=== PATIENT | female | born 1975 | race African-American/Black ===

== ENCOUNTER 2019-06-11 12:47 | Emergency (ER) | payer OTHER, SELFPAY ==
[2019-06-11 12:58] VITALS: BP 138/88; PULSE 74; RESP 18; TEMP 37; O2SAT 99
--- NOTE | 2019-06-11 13:06 | ED.GENADULT ---
HPI - General Adult General Chief complaint: Upper Respiratory Infection Stated complaint: Sore Throat Related Data Home Medications Medication Instructions Recorded Confirmed aspirin 81 mg PO DAILY 06/11/19 06/11/19 sertraline [Zoloft] 25 mg PO DAILY 06/11/19 06/11/19 Allergies Allergy/AdvReac Type Severity Reaction Status Date / Time codeine Allergy Intermediate Swelling Verified 12/28/16 19:29 tetanus and diphtheria Allergy Intermediate Swelling Verified 12/28/16 19:29 toxoids ibuprofen Allergy Mild Nausea Verified 01/10/18 09:06 Latex, Natural Rubber Allergy Unknown Other Verified 12/28/16 19:29 lisinopril Allergy Unknown Verified 06/11/19 13:06 seafood Allergy Intermediate Swelling Uncoded 12/28/16 19:29 Review of Systems Review of Systems: Narrative: CONSTITUTIONAL: Denies fever, chills, or sweats. EYES: Denies visual changes, redness, or discharge. ENT: Denies rhinorrhea, congestion, sore throat, or otalgia. CARDIOVASCULAR:Denies chest pain, palpitations, or edema. RESPIRATORY: Denies cough or dyspnea. GASTROINTESTINAL: Denies abdominal pain, nausea, vomiting, or diarrhea. GENITOURINARY: Denies dysuria or hematuria. SKIN:[Denies rash or itching. MUSCULOSKELETAL:Denies back pain, joint pain, or myalgia. NEUROLOGIC: Denies headache, numbness, or weakness. PSYCHIATRIC:Denies anxiety or depression PMFSH Past Medical History Medical History (Updated 06/11/19 @ 13:33 by Hank Webb NP) Anxiety and depression Complex regional pain syndrome Diabetes Endometriosis GERD (gastroesophageal reflux disease) Hypertension Surgical History Surgical History (Updated 03/21/19 @ 12:37 by Nely Briggs NP) H/O LEEP History of weight loss surgery S/P endometrial ablation Social History Social History (Updated 03/21/19 @ 12:37 by Nely Briggs NP) Smoking status: Never smoker Gender identity (if verbalized by the patient): Female Comments At time as signature, I have reviewed and agree with nursing past medical, social, surgical and family history. Please see nursing chart for further information. There is no relevant family history pertinent to the presenting complaint. Exam Narrative: Exam Narrative: GENERAL:Well-appearing, well-nourished, and in no acute distress. HEAD:Normocephalic, atraumatic. EYES: PERRLA and EOMI. ENT: Nares clear, no rhinorrhea or epistaxis. Mucous membranes moist. Postpharyngeal drainage NECK: Supple. CHEST: Clear to auscultation. No respiratory distress. HEART: Regular rate and rhythm. No murmur heard. Normal peripheral pulses. ABDOMEN: Soft, nontender, nondistended, normal active bowel sounds. Nausea and diarrhea EXTREMITIES: Normal range of motion. No edema. SKIN: Warm, dry, no rash. NEURO: No focal deficits. Alert and oriented x3. Course Vital Signs Vital signs: Vital Signs Temperature 98.6 F 06/11/19 12:58 Pulse Rate 74 06/11/19 12:58 Respiratory Rate 18 06/11/19 12:58 Blood Pressure 138/88 06/11/19 12:58 Pulse Oximetry 99 06/11/19 12:58 Temperature 98.6 F 06/11/19 12:58 Pulse Rate 74 06/11/19 12:58 Respiratory Rate 18 06/11/19 12:58 Blood Pressure 138/88 06/11/19 12:58 Pulse Oximetry 99 06/11/19 12:58 Medical Decision Making Vital Signs Vital Signs: Vital Signs Temperature 98.6 F 06/11/19 12:58 Pulse Rate 74 06/11/19 12:58 Respiratory Rate 18 06/11/19 12:58 Blood Pressure 138/88 06/11/19 12:58 Pulse Oximetry 99 06/11/19 12:58 Temperature 98.6 F 06/11/19 12:58 Pulse Rate 74 06/11/19 12:58 Respiratory Rate 18 06/11/19 12:58 Blood Pressure 138/88 06/11/19 12:58 Pulse Oximetry 99 06/11/19 12:58 Discharge Plan Discharge Clinical Impression: Viral infection, Gastroenteritis Nausea & vomiting Qualifiers: Vomiting type: unspecified Vomiting Intractability: unspecified Qualified Code(s): R11.2 - Nausea with vomiting, unspecified Patient Disp
== END 2019-06-11 13:38 | disposition home or self-care (01) ==
PROVIDERS: Emergency Provider Nurse Practitioner Family
DX: B34.9 Viral infection, unspecified (principal); K21.9 Gastro-esophageal reflux disease without esophagitis; R11.2 Nausea with vomiting, unspecified; F41.9 Anxiety disorder, unspecified; F32.9 Major depressive disorder, single episode, unspecified; E11.9 Type 2 diabetes mellitus without complications; I10 Essential (primary) hypertension; N80.9 Endometriosis, unspecified
CPT/HCPCS: 87081; 87804; 87880; 99213; G0463

== ENCOUNTER 2019-08-16 10:52 | Emergency (ER) | payer OTHER, SELFPAY ==
[2019-08-16 11:04] VITALS: BP 136/90; PULSE 82; RESP 16; TEMP 37.3; O2SAT 100
--- NOTE | 2019-08-16 11:22 | ED.URI ---
HPI - URI/Sore Throat General Stated Complaint: Fever/Sore Throat/Ear Pain Time Seen by Provider: 08/16/19 11:10 Source: patient and RN notes reviewed Mode of arrival: ambulatory Limitations: no limitations History of Present Illness HPI Narrative: Patient presents today with a 4-day history of sore throat, fever up to 101, headache, and left ear pain. She currently rates her pain 9/10 and has been taking Tylenol with some relief. Patient was tested negative for COVID-19 3 days ago. History of gastric sleeve and cannot swallow big pills. MD elicited complaint: sore throat Related Data Home Medications Medication Instructions Recorded Confirmed acetaminophen 500 mg PO DIRECTED 08/16/19 08/16/19 albuterol sulfate 2 inh INHALATION DIRECTED 08/16/19 08/16/19 ergocalciferol (vitamin D2) 1,250 mcg PO WEEKLY 08/16/19 08/16/19 omeprazole 40 mg PO BID 08/16/19 08/16/19 Allergies Allergy/AdvReac Type Severity Reaction Status Date / Time chocolate flavor Allergy Rash Verified 08/16/19 11:13 codeine Allergy Itching Verified 08/16/19 11:13 iodine Allergy Swelling Verified 08/16/19 11:13 of Lip/Tongue/Throat Review of Systems Review of Systems: Narrative: CONSTITUTIONAL: Denies body aches, chills, or sweats.+ Fever EYES: Denies visual changes, redness, or discharge. ENT: Denies rhinorrhea, congestion. + Sore throat, left ear pain CARDIOVASCULAR: Denies chest pain, palpitations, or edema. RESPIRATORY: Denies cough or dyspnea. GASTROINTESTINAL: Denies abdominal pain, nausea, vomiting, or diarrhea. GENITOURINARY: Denies dysuria or hematuria. SKIN: Denies rash, itching, or wounds. MUSCULOSKELETAL: Denies back pain, joint pain, or myalgia. NEUROLOGIC: Denies numbness, tingling, or weakness.+ Headache PSYCH: Denies depression or anxiety. [facility]LY [facility], [facility] Past Medical History Medical History (Updated 08/16/19 @ 11:26 by Dagmar Sands, ASHIA, BC) Low vitamin D level Surgical History Surgical History (Updated 08/16/19 @ 11:24 by Dagmar Sands, ASHIA, BC) History of sleeve gastrectomy Comments At time of signature, I have reviewed and agree with nursing past medical, surgical, social and family history unless otherwise noted. Please see nursing chart for further information. There is no relevant family history pertinent to the presenting complaint Exam Narrative: Exam Narrative: GENERAL: Well-appearing, well-nourished, and in no acute distress. HEAD: Normocephalic, atraumatic. EYES: EOMI. No redness or drainage. Conjunctivae normal. ENT: Mucous membranes pink and moist. Nares clear. No rhinorrhea. TMs normal bilaterally. Throat mildly erythematous without edema or exudate. Uvula midline. NECK: Normal AROM. Supple. No lymphadenopathy. CHEST: No respiratory distress. Clear to auscultation. HEART: Regular rate and rhythm. No murmur appreciated. Normal peripheral pulses. EXTREMITIES: Normal range of motion. No edema. SKIN: Warm, dry, no rash. Capillary refill normal. Normal skin turgor. NEURO: No focal deficits. Alert and oriented x3. Gait steady. PSYCH: Normal affect. No signs of depression or anxiety. Course Vital Signs Vital signs: Vital Signs Temperature 99.2 F 08/16/19 11:04 Pulse Rate 82 08/16/19 11:04 Respiratory Rate 16 08/16/19 11:04 Blood Pressure 136/90 08/16/19 11:04 Pulse Oximetry 100 08/16/19 11:04 Temperature 99.2 F 08/16/19 11:04 Pulse Rate 82 08/16/19 11:04 Respiratory Rate 16 08/16/19 11:04 Blood Pressure 136/90 08/16/19 11:04 Pulse Oximetry 100 08/16/19 11:04 Reviewed. Pt has been instructed to follow up with her PCP regarding her elevated blood pressure today. MDM - URI/Sore Throat Differential Diagnosis Differential diagnosis: Likely upper respiratory infection, otitis media, pharyngitis and other (Strep) Lab Data Attestation: I reviewed the patient's lab results. Labs: Strep Screen Positive Group A Strep *(Re
== END 2019-08-16 11:29 | disposition home or self-care (01) ==
PROVIDERS: Emergency Provider Nurse Practitioner
DX: J02.0 Streptococcal pharyngitis (principal); Z98.84 Bariatric surgery status; K21.9 Gastro-esophageal reflux disease without esophagitis
CPT/HCPCS: 87880; 99203; G0463

== ENCOUNTER 2021-12-26 17:56 | Emergency (ER) | payer OTHER, SELFPAY ==
[2021-12-26 18:08] VITALS: BP 136/106; PULSE 71; RESP 18; TEMP 36.8; O2SAT 100
--- NOTE | 2021-12-26 18:24 | ED.EYEPROB ---
HPI - Eye Problem General Chief complaint: Eye Problems Stated complaint: Right Eye Pain Time Seen by Provider: 12/26/21 18:24 Source: patient, RN notes reviewed and old records reviewed Mode of arrival: ambulatory Limitations: no limitations History of Present Illness HPI Narrative: 46-year-old female presents to the [facility] with complaints of continued right eye discomfort with tearing and sensitivity to light. Patient reports that on Sunday she was seen in the ER, [facility], referred to [facility] where she was seen on Sunday and was told she had a corneal abrasion. Was started on Blephamide eyedrops. Patient states that she still sensitive to light and has not had any improvement. Comes here because she is still in discomfort. Was not told she could take Tylenol nor use cool compresses. Offered patient referral or transfer to an emergency room which patient declined. Stated she will try to call [facility] in the morning Related Data Home Medications Medication Instructions Recorded Confirmed aspirin 81 mg chewable tablet 81 mg PO DAILY 06/11/19 12/26/21 sertraline 25 mg tablet (Zoloft) 25 mg PO DAILY 06/11/19 12/26/21 acetaminophen 500 mg tablet 500 mg PO DIRECTED 08/16/19 12/26/21 ergocalciferol (vitamin D2) 1,250 1,250 mcg PO WEEKLY 08/16/19 12/26/21 mcg (50,000 unit) capsule omeprazole 40 mg capsule,delayed 40 mg PO BID 08/16/19 12/26/21 release sucralfate 1 gram tablet 1 g PO DAILY 12/26/21 12/26/21 Allergies Allergy/AdvReac Type Severity Reaction Status Date / Time tetanus and diphtheria Allergy Intermediate Swelling Verified 12/26/21 18:26 toxoids ibuprofen Allergy Mild Nausea Verified 12/26/21 18:26 Latex, Natural Rubber Allergy Unknown Other Verified 12/26/21 18:26 chocolate flavor Allergy Rash Verified 12/26/21 18:26 codeine Allergy Itching Verified 12/26/21 18:26 iodine Allergy Swelling Verified 12/26/21 18:26 of Lip/Tongue/Throat lisinopril Allergy Unknown Verified 12/26/21 18:26 shellfish derived Allergy Swelling Verified 12/26/21 18:34 Review of Systems Review of Systems: All systems reviewed & are unremarkable except as noted in HPI and below Constitutional: Constitutional: Reports no additional constitutional complaints, Denies chills and Denies fever(s) Eyes: Eyes: Reports no additional eye complaints ENT: Reports system reviewed and no additional complaints, except as documented Cardiovascular: Cardiovascular: Reports no additional cardiovascular complaints Respiratory: Respiratory: Reports no additional respiratory complaints Gastrointestinal: Gastrointestinal: Reports no additional gastrointestinal complaints Musculoskeletal: Musculoskeletal: Reports no additional musculoskeletal complaints Integumentary/Breasts: Skin/Breast: Reports system reviewed and no additional complaints, except as docu Neurologic: Reports system reviewed and no additional complaints, except as documented Psychiatric: Psychiatric: Reports no additional psychiatric complaints Allergic/Immunologic: Allergic/Immunologic: Reports no additional allergic/immunologic complaints PMFSH Past Medical History Medical History Anxiety and depression Complex regional pain syndrome Diabetes Endometriosis GERD (gastroesophageal reflux disease) Hypertension Low vitamin D level Surgical History Surgical History H/O LEEP History of sleeve gastrectomy History of weight loss surgery S/P endometrial ablation Social History Social History Smoking status: Never smoker Gender identity (if verbalized by the patient): Female Comments At the time of my signature, I reviewed and agree with the nursing past medical, surgical, social, and family history. There is no relevant family history pertinent to the patient compl
== END 2021-12-26 18:45 | disposition home or self-care (01) ==
PROVIDERS: Emergency Provider Nurse Practitioner
DX: S05.01XA Injury of conjunctiva and corneal abrasion without foreign body, right eye, initial encounter (principal); E11.9 Type 2 diabetes mellitus without complications; K21.9 Gastro-esophageal reflux disease without esophagitis; I10 Essential (primary) hypertension; Z79.82 Long term (current) use of aspirin; E55.9 Vitamin D deficiency, unspecified
CPT/HCPCS: 99212; G0463

== ENCOUNTER 2022-04-17 17:13 | Emergency (ER) | payer OTHER, SELFPAY ==
[2022-04-17 17:47] VITALS: BP 155/78; PULSE 77; RESP 16; TEMP 37.5; O2SAT 99
--- NOTE | 2022-04-17 17:54 | ED.URI ---
HPI - URI/Sore Throat General Chief Complaint: Upper Respiratory Infection Stated Complaint: Sore Throat/Right Ear Irritation/Diarrhea Time Seen by Provider: 04/17/22 17:50 Source: patient Mode of arrival: ambulatory Limitations: no limitations History of Present Illness HPI Narrative: Ms. Fuller is a 46-year-old female patient presenting to the clinic today with complaints sore throat, headache, right ear pain, diarrhea, and cough x3 days. She reports she had similar illness over and that improved tender over symptoms started back 3 days ago. She works as a MEMBERSHIP SECRETARY in a healthcare setting. MD elicited complaint: cough, sore throat, rhinorrhea, nasal congestion and other ( right ear pain, diarrhea) Related Data Home Medications Medication Instructions Recorded Confirmed aspirin 81 mg chewable tablet 81 mg PO DAILY 06/11/19 04/17/22 dicyclomine 10 mg capsule 10 mg TID 04/17/22 04/17/22 ergocalciferol (vitamin D2) 1,250 1,250 mcg WE 04/17/22 04/17/22 mcg (50,000 unit) capsule escitalopram oxalate 10 mg tablet 10 mg DAILY 04/17/22 04/17/22 omeprazole 40 mg capsule,delayed 40 mg DAILY 04/17/22 04/17/22 release polyethylene glycol 3350 17 17 g PO DAILY 04/17/22 04/17/22 gram/dose oral powder (Miralax) sucralfate 1 gram tablet 1 g QID 04/17/22 04/17/22 Allergies Allergy/AdvReac Type Severity Reaction Status Date / Time tetanus and diphtheria Allergy Intermediate Swelling Verified 04/17/22 17:26 toxoids ibuprofen Allergy Mild Nausea Verified 04/17/22 17:26 Latex, Natural Rubber Allergy Unknown Other Verified 04/17/22 17:26 chocolate flavor Allergy Rash Verified 04/17/22 17:26 codeine Allergy Itching Verified 04/17/22 17:26 iodine Allergy Swelling Verified 04/17/22 17:26 of Lip/Tongue/Throat lisinopril Allergy Unknown Verified 04/17/22 17:26 shellfish derived Allergy Swelling Verified 04/17/22 17:26 Review of Systems Review of Systems: Pertinent positives per HPI. Patient denies any fever, chills, rash, visual changes, dizziness, shortness of breath, chest pain, palpitations, nausea, vomiting, diarrhea, constipation, abdominal pain, or any urinary issues. [facility] Past Medical History Medical History Anxiety and depression Complex regional pain syndrome Diabetes Endometriosis GERD (gastroesophageal reflux disease) Hypertension Low vitamin D level Surgical History Surgical History H/O LEEP History of sleeve gastrectomy History of weight loss surgery S/P endometrial ablation Social History Social History Smoking status: Never smoker Gender identity (if verbalized by the patient): Female Comments At the time of my signature, I reviewed and agree with the nursing past medical, surgical, social, and family history. There is no relevant family history pertinent to the patient complaint. Exam Narrative: General: Well-developed, obese, in no apparent distress Head: Normocephalic, atraumatic Eyes: Pupils equally round and reactive to light bilaterally, EOM intact, sclera and conjunctive clear, no discharge, lids normal Ears: TMs intact , dull, congested, ear canals clear, no drainage, grossly hearing normal. Nose: Nares patent, clear nasal discharge, no inflammation, no sinus tenderness. Mouth: Oral pharynx without lesions or masses, good dentition, MMM. oropharynx red Neck: Supple, trachea midline, no enlargement of anterior or posterior cervical nodes, no thyroid masses or goiter palpable. Cardio: Regular rate and rhythm, s1 and s2 normal, no murmur appreciated. Resp: Clear to auscultation bilaterally, no rhonchi, rales, wheezing or rubs Course Course Emergency Course: Portions of this record may have been created with voice recognition software. Level of Care: Express Care Visit
== END 2022-04-17 18:00 | disposition home or self-care (01) ==
PROVIDERS: Emergency Provider Nurse Practitioner Family
DX: J06.9 Acute upper respiratory infection, unspecified (principal); J02.9 Acute pharyngitis, unspecified; B34.9 Viral infection, unspecified; Z20.822 Contact with and (suspected) exposure to COVID-19; E11.9 Type 2 diabetes mellitus without complications; N80.9 Endometriosis, unspecified; K21.9 Gastro-esophageal reflux disease without esophagitis; I10 Essential (primary) hypertension; Z98.84 Bariatric surgery status; F41.9 Anxiety disorder, unspecified; F32.A Depression, unspecified; Z79.82 Long term (current) use of aspirin
CPT/HCPCS: 87081; 87426; 87804; 87880; 99213; C9803; G0463

== ENCOUNTER 2022-08-09 12:07 | Emergency (ER) | payer BC, OTHER, SELFPAY ==
[2022-08-09 12:14] VITALS: BP 154/88; PULSE 67; RESP 16; TEMP 37.1; O2SAT 100
[2022-08-09 12:19] VITALS: BP 154/88; PULSE 67; RESP 16; TEMP 37.1; O2SAT 100
--- NOTE | 2022-08-09 12:20 | ED.URI ---
HPI - URI/Sore Throat General Chief Complaint: Upper Respiratory Infection Stated Complaint: Sinus Time Seen by Provider: 08/09/22 12:20 Source: patient Mode of arrival: ambulatory Limitations: no limitations History of Present Illness HPI Narrative: 47-year-old female presents with complaint of fever, body aches, fatigue, chills, headache,nasal congestion and cough for the past 4 days. Reports continued fatigue and body aches today. Was not able to go to work. Has had left ear pain for 2 days. Denies nausea vomiting diarrhea. No chest pain or shortness of breath. Taking ibuprofen and Tylenol to treat her symptoms. All systems reviewed and negative except as noted above. Related Data Home Medications Medication Instructions Recorded Confirmed aspirin 81 mg chewable tablet 81 mg PO DAILY 06/11/19 08/09/22 ergocalciferol (vitamin D2) 1,250 1,250 mcg WE 04/17/22 08/09/22 mcg (50,000 unit) capsule escitalopram oxalate 10 mg tablet 10 mg DAILY 04/17/22 08/09/22 Allergies Allergy/AdvReac Type Severity Reaction Status Date / Time tetanus and diphtheria Allergy Intermediate Swelling Verified 08/09/22 12:18 toxoids ibuprofen Allergy Mild Nausea Verified 08/09/22 12:18 Latex, Natural Rubber Allergy Unknown Other Verified 08/09/22 12:18 chocolate flavor Allergy Rash Verified 08/09/22 12:18 codeine Allergy Itching Verified 08/09/22 12:18 iodine Allergy Swelling Verified 08/09/22 12:18 of Lip/Tongue/Throat lisinopril Allergy Unknown Verified 08/09/22 12:18 shellfish derived Allergy Swelling Verified 08/09/22 12:18 Review of Systems Review of Systems: CONSTITUTIONAL: reports fever, fatigue,chills, or sweats. EYES: Denies visual changes, redness, or discharge. ENT: Reports rhinorrhea, congestion, left ear pain. Denies sore throat CARDIOVASCULAR: Denies chest pain, palpitations, or edema. RESPIRATORY: Denies cough or dyspnea. GASTROINTESTINAL: Denies abdominal pain, nausea, vomiting, or diarrhea. GENITOURINARY: Denies dysuria or hematuria. SKIN: Denies rash or itching. MUSCULOSKELETAL: Denies back pain, joint pain, or myalgia. NEUROLOGIC: reports headache. Deniesnumbness, or weakness. PSYCHIATRIC: Denies anxiety or depression. All other systems reviewed are negative, except as documented in HPI. PENDING SALE TO [facility] Past Medical History Medical History Anxiety and depression Complex regional pain syndrome Diabetes Endometriosis GERD (gastroesophageal reflux disease) Hypertension Low vitamin D level Surgical History Surgical History H/O LEEP History of sleeve gastrectomy History of weight loss surgery S/P endometrial ablation Social History Social History Smoking status: Never smoker Living arrangements: with family Gender identity (if verbalized by the patient): Female Comments At time of signature, agree with nursing past medical, surgical, social and family history. There is no relevant family history pertinent to the presenting complaint. Exam Narrative: GENERAL: This is a well-nourished, well-developed patient. Patient ill-appearing but in no acute distress. HEAD: normocephalic, atraumatic. EYES: PERRL. Sclera clear/white. Vision is grossly intact. EARS: External ears normal, auditory canals clear and without drainage, Right TM normal. Left TM is erythematous and bulging. No perforation bilaterally. NOSE: External nose normal with Clear nasal drainage with erythema to both nares. THROAT: Mucous membranes moist, Erythema to posterior pharynx without exudates. NECK: Neck supple, non-tender without lymphadenopathy, masses or thyromegaly. CARDIOVASCULAR: Regular rate and rhythm without murmurs, gallops, or rubs. RESPIRATORY: Clear to auscultation. Breath sounds equal bilaterally. No wheezes, rales,
== END 2022-08-09 12:50 | disposition home or self-care (01) ==
PROVIDERS: Emergency Provider Nurse Practitioner Family
DX: J10.1 Influenza due to other identified influenza virus with other respiratory manifestations (principal); H66.92 Otitis media, unspecified, left ear; Z20.822 Contact with and (suspected) exposure to COVID-19; E11.9 Type 2 diabetes mellitus without complications; N80.9 Endometriosis, unspecified; K21.9 Gastro-esophageal reflux disease without esophagitis; I10 Essential (primary) hypertension; E55.9 Vitamin D deficiency, unspecified; F41.9 Anxiety disorder, unspecified; F32.A Depression, unspecified; Z98.84 Bariatric surgery status; Z79.82 Long term (current) use of aspirin
CPT/HCPCS: 87081; 87426; 87804; 87880; 99213; C9803; G0463

== ENCOUNTER → 2022-09-20 09:50 | Emergency (ER) | payer BC, OTHER, SELFPAY | PROVIDERS: Emergency Provider Nurse Practitioner Family | DX: H05.221 Edema of right orbit (principal); J06.9 Acute upper respiratory infection, unspecified; Z20.822 Contact with and (suspected) exposure to COVID-19 | CPT/HCPCS: 87081; 87426; 87880; 99213; C9803; G0463 ==

== ENCOUNTER 2022-11-20 10:33 | Emergency (ER) | payer BC, OTHER, SELFPAY ==
[2022-11-20] VITALS (21 sets, daily range): BP systolic 121–183; BP diastolic 85–108; PULSE 62–87; RESP 12–26; TEMP 36.7; O2SAT 90–100
--- NOTE | ~2022-11-20 | XR_ITS ---
EXAMINATION: XR chest 1V portable INDICATION: Chest pain TECHNIQUE: Portable AP chest at 1051 hours COMPARISON: None available FINDINGS: The lungs are free of acute opacities. No pleural effusion or pneumothorax. The cardiomedia stinal silhouette is normal. IMPRESSION: 1. No acute cardiopulmonary abnormality. Reviewed, dictated and finalized at location B.
--- NOTE | 2022-11-20 10:37 | ECG_ITS ---
Measurements Intervals [place] Rate: 75 P: 50 HI: 173 QRS: 6 QRSD: 74 T: 35 QT: 374 QTc: 418 Interpretive Statements SINUS RHYTHM NORMAL ELECTROCARDIOGRAM NO PREVIOUS ECG AVAILABLE FOR COMPARISON Electronically Signed On 11-20-2022 17:00:32 CDT by Eb Beauchamp M.D.
[2022-11-20 10:57] LABS: Basophils Percent Auto 0.7 % (0.2-1.2); Eosinophils Percent Auto 0.7 % (0-4.4); Hematocrit 39.5 % (37.0-47.0); Hemoglobin 12.6 g/dL (12.0-15.0); Immature Granulocyte Absolute 0.01 K/mm3 (0.00-0.031); Immature Granulocyte Percent A 0.2 % (0-0.5); Lymphocytes Absolute Auto 1.59 K/mm3 (0.9-3.2); Lymphocytes Percent Auto 39.2 % (18.3-44.2); Mean Corpuscular HGB Conc 31.9 g/dl (32-36); Mean Corpuscular Volume 81.4 fl (80-100); Monocytes Absolute Auto 0.2 K/mm3 (0.1-0.6); Monocytes Percent Auto 5.4 % (2.6-8.5); Neutrophils Absolute Auto 2.2 K/mm3 (1.3-6.7); Neutrophils Percent Auto 53.8 % (45.5-73.1); Platelet Count Result 338 k/mm3 (150-375); Red Blood Count 4.85 M/mm3 (4.2-5.4); Red Cell Distribution Width 13.4 % (11.5-14.5); White Blood Count 4.1 K/mm3 (4.5-10.0)
[2022-11-20 11:05] LABS: Alanine Aminotransferase 21 U/L (6-35); Alkaline Phosphatase 68 U/L (38-126); Anion Gap 3 mmol/L (8-16); Aspartate Amino Transferase 25 U/L (14-36); Bilirubin,Total 0.4 mg/dL (0.2-1.3); Blood Urea Nitrogen 8 mg/dL (7-17); Calcium 8.9 mg/dL (8.4-10.2); Carbon Dioxide 27 mmol/L (22-30); Chloride 104 mmol/L (98-107); Estimated CRCL calculation 115 ml/min; Estimated Glomerular Filt Rate > 60; Glucose 108 mg/dL (65-110); Lipase 41 U/L (23-300); Potassium 3.7 mmol/L (3.4-5.0); Sodium 134 mmol/L (137-145)
[2022-11-20 11:06] LABS: Prothrombin Time 13.6 Seconds (11.1-14.7)
[2022-11-20 11:07] LABS: Partial Thromboplastin Time 28.1 SECONDS (22.3-36.8)
[2022-11-20 11:16] LABS: Troponin I < 0.012 ng/mL (0.000-0.034)
--- NOTE | 2022-11-20 12:31 | ED.CHESTPAIN ---
HPI - Chest Pain General Chief Complaint: Chest Pain Stated Complaint: cp Time Seen by Provider: 11/20/22 12:07 History of Present Illness HPI narrative: Patient is a 47-year-old female presenting with chest pain. Patient states that for the last week she has had intermittent left-sided chest pain that originates from her epigastrium. States that the pain feels so severe that she feels like she is about to collapse. Denies associated diaphoresis, nausea, shortness of breath. States that she does have a lot of GI problems and has to use Zofran regularly for chronic nausea. She denies current nausea. Denies current chest pain. States that she has had chest pain like this in the past and it has always been whenever she starts taking phentermine. States that she recently restarted phentermine for weight loss and her is concerned that it is causing her chest pain. She denies exertional component to the pain. She denies pleuritic component. Denies abdominal pain, back pain, numbness or weakness, leg swelling. Denies further complaints. Related Data Home Medications Medication Instructions Recorded Confirmed aspirin 81 mg chewable tablet 81 mg PO DAILY 06/11/19 08/09/22 ergocalciferol (vitamin D2) 1,250 1,250 mcg WE 04/17/22 08/09/22 mcg (50,000 unit) capsule escitalopram oxalate 10 mg tablet 10 mg DAILY 04/17/22 08/09/22 Allergies Allergy/AdvReac Type Severity Reaction Status Date / Time tetanus and diphtheria Allergy Intermediate Swelling Verified 11/20/22 10:44 toxoids ibuprofen Allergy Mild Nausea Verified 11/20/22 10:44 Latex, Natural Rubber Allergy Unknown Other Verified 11/20/22 10:44 chocolate flavor Allergy Rash Verified 11/20/22 10:44 codeine Allergy Itching Verified 11/20/22 10:44 iodine Allergy Swelling Verified 11/20/22 10:44 of Lip/Tongue/Throat lisinopril Allergy Unknown Verified 11/20/22 10:44 shellfish derived Allergy Swelling Verified 11/20/22 10:44 Review of Systems Review of Systems: All systems reviewed & are unremarkable except as noted in HPI and below PMFSH Past Medical History Medical History Anxiety and depression Complex regional pain syndrome Diabetes Endometriosis GERD (gastroesophageal reflux disease) Hypertension Low vitamin D level Surgical History Surgical History H/O LEEP History of sleeve gastrectomy History of weight loss surgery S/P endometrial ablation Social History Social History Smoking status: Never smoker Living arrangements: with family Gender identity (if verbalized by the patient): Female Exam Narrative: GENERAL: Well-appearing, well-nourished, and in no acute distress. Pleasant and cooperative HEAD: Normocephalic, atraumatic. EYES: PERRLA and EOMI. ENT: Nares clear, no rhinorrhea or epistaxis. Mucous membranes moist. NECK: Supple. CHEST: Clear to auscultation. No respiratory distress. + Chest wall tenderness just to the left of her sternum along the costochondral border HEART: Regular rate and rhythm. No murmur heard. Normal peripheral pulses. ABDOMEN: Soft, nontender, nondistended EXTREMITIES: Normal range of motion. No edema. SKIN: Warm, dry, no rash. NEURO: No focal deficits. Alert and oriented x3. PSYCH: Normal mood and affect. Course Vital Signs Vital signs: Vital Signs Temperature 98.0 F 11/20/22 10:35 Pulse Rate 79 11/20/22 10:35 Respiratory Rate 20 11/20/22 10:35 Blood Pressure 160/87 H 11/20/22 10:35 Pulse Oximetry 99 11/20/22 10:35 Oxygen Delivery Room Air 11/20/22 10:35 Temperature 98.0 F 11/20/22 10:35 Pulse Rate 70 11/20/22 15:24 Respiratory Rate 16 11/20/22 15:24 Blood Pressure 121/85 11/20/22 15:24 Pulse Oximetry 100 11/20/22 15:24 Oxygen Delivery Room Air 11/20/22 10:41
[2022-11-20 14:11] LABS: Troponin I < 0.012 ng/mL (0.000-0.034)
== END 2022-11-20 15:25 | disposition home or self-care (01) ==
PROVIDERS: Emergency Medicine; Emergency Provider Emergency Medicine
DX: R07.89 Other chest pain (principal); E11.9 Type 2 diabetes mellitus without complications; I10 Essential (primary) hypertension; N80.9 Endometriosis, unspecified; K21.9 Gastro-esophageal reflux disease without esophagitis; F41.9 Anxiety disorder, unspecified; F32.A Depression, unspecified; Z98.84 Bariatric surgery status; Z79.82 Long term (current) use of aspirin
CPT/HCPCS: 36415; 71045; 80053; 83690; 84484; 85025; 85610; 85730; 93005; 99284

== ENCOUNTER 2022-12-20 10:32 | Emergency (ER) | payer BC, OTHER, SELFPAY ==
--- NOTE | ~2022-12-20 | XR_ITS ---
Clinical Indication: Cough PA and lateral views of the chest: Comparison: 11/20/2022 Findings: The lungs are clear, without evidence of focal consolidation or pleural effusion. Cardiome diastinal silhouette is within normal limits. Bones and soft tissues are unremarkable. Impression: Normal chest. Reviewed, dictated and finalized at location . Impression: Normal chest.
[2022-12-20 10:45] VITALS: BP 134/92; PULSE 93; RESP 16; TEMP 37.2; O2SAT 98
[2022-12-20 10:48] VITALS: BP 134/92; PULSE 93; RESP 16; TEMP 37.2; O2SAT 98
--- NOTE | 2022-12-20 11:06 | ED.URI ---
HPI - URI/Sore Throat General Chief Complaint: Upper Respiratory Infection Stated Complaint: Sore Throat/Cough Time Seen by Provider: 12/20/22 11:06 Source: patient Mode of arrival: ambulatory Limitations: no limitations History of Present Illness HPI Narrative: 47 yo F presents with c/o nasal congestion, sore throat, cough, fatigue, bodyaches and headache for 2 to 3 days. States temp 101 to 102F. Taking tylenol to treat fever. hx of asthma. denies CP, SOB, wheezing. Using inhalers as prescribed. Is using albuterol more often last 2 days than normal. speaking in full sentences. All systems reviewed and negative excetp as noted above. Related Data Home Medications Medication Instructions Recorded Confirmed aspirin 81 mg chewable tablet 81 mg PO DAILY 06/11/19 08/09/22 ergocalciferol (vitamin D2) 1,250 2,000 mcg DAILY 04/17/22 08/09/22 mcg (50,000 unit) capsule escitalopram oxalate 10 mg tablet 10 mg DAILY 04/17/22 08/09/22 albuterol sulfate 90 mcg/actuation inhalation 12/20/22 aerosol inhaler Allergies Allergy/AdvReac Type Severity Reaction Status Date / Time tetanus and diphtheria Allergy Intermediate Swelling Verified 12/20/22 10:47 toxoids ibuprofen Allergy Mild Nausea Verified 12/20/22 10:47 Latex, Natural Rubber Allergy Unknown Other Verified 12/20/22 10:47 chocolate flavor Allergy Rash Verified 12/20/22 10:47 codeine Allergy Itching Verified 12/20/22 10:47 iodine Allergy Swelling Verified 12/20/22 10:47 of Lip/Tongue/Throat lisinopril Allergy Unknown Verified 12/20/22 10:47 shellfish derived Allergy Swelling Verified 12/20/22 10:47 Review of Systems Review of Systems: CONSTITUTIONAL: Reports fever, chills, or sweats. reports fatigue. EYES: Denies visual changes, redness, or discharge. ENT: reports rhinorrhea, congestion, sore throat. Denies otalgia. CARDIOVASCULAR: Denies chest pain, palpitations, or edema. RESPIRATORY: reports cough. Denies dyspnea. GASTROINTESTINAL: Denies abdominal pain, nausea, vomiting, or diarrhea. GENITOURINARY: Denies dysuria or hematuria. SKIN: Denies rash or itching. MUSCULOSKELETAL: Denies back pain, joint pain. Reports myalgia. NEUROLOGIC: Denies headache, numbness, or weakness. PSYCHIATRIC: Denies anxiety or depression. All other systems reviewed are negative, except as documented in HPI. [facility] Past Medical History Medical History Anxiety and depression Complex regional pain syndrome Diabetes Endometriosis GERD (gastroesophageal reflux disease) Hypertension Low vitamin D level Surgical History Surgical History H/O LEEP History of sleeve gastrectomy History of weight loss surgery S/P endometrial ablation Social History Social History Smoking status: Never smoker Living arrangements: with family Gender identity (if verbalized by the patient): Female Comments At time of signature, agree with nursing past medical, surgical, social and family history. There is no relevant family history pertinent to the presenting complaint. Exam Narrative: GENERAL: This is a well-nourished, well-developed patient, patient ill-appearing but no acute distress. HEAD: normocephalic, atraumatic. EYES: PERRL. Sclera clear/white. Vision is grossly intact. EARS: External ears normal, auditory canals clear and without drainage, TMs normal without perforation. Hearing grossly intact. NOSE: External nose normal with Clear nasal drainage, erythema to bilateral nares. THROAT: Mucous membranes moist, posterior pharynx clear. NECK: Neck supple, non-tender without lymphadenopathy, masses or thyromegaly. CARDIOVASCULAR: Regular rate and rhythm without murmurs, gallops, or rubs. RESPIRATORY: Clear to auscultation. Breath sounds equal bilaterally. No wheezes, rales, or rhonchi. SKIN: war
== END 2022-12-20 11:49 | disposition home or self-care (01) ==
PROVIDERS: Emergency Provider Nurse Practitioner Family
DX: J06.9 Acute upper respiratory infection, unspecified (principal); E11.9 Type 2 diabetes mellitus without complications; I10 Essential (primary) hypertension; Z20.822 Contact with and (suspected) exposure to COVID-19
CPT/HCPCS: 71046; 87081; 87426; 87804; 87880; 99213; C9803; G0463

== ENCOUNTER 2023-02-19 12:10 | Emergency (ER) | payer BC, OTHER, SELFPAY ==
[2023-02-19 12:22] VITALS: BP 122/105; PULSE 77; RESP 16; TEMP 37.1; O2SAT 99
--- NOTE | 2023-02-19 13:14 | ED.URI ---
HPI - URI/Sore Throat General Chief Complaint: Upper Respiratory Infection Stated Complaint: headache,chills,nose/throat sore Time Seen by Provider: 02/19/23 13:05 Source: patient and RN notes reviewed Mode of arrival: ambulatory Limitations: no limitations History of Present Illness HPI Narrative: Patient presents today complaining of a 3-4 day history of nasal congestion, rhinorrhea, left ear pain, sore throat, and dry cough. She has tried multiple [id number] medications without much relief. Patient works in a hospital. She tried to called telemedicine for a visit today, but since they instructed her to come in for an in-person visit somewhere. Related Data Home Medications Medication Instructions Recorded Confirmed aspirin 81 mg chewable tablet 81 mg PO DAILY 06/11/19 08/09/22 ergocalciferol (vitamin D2) 1,250 2,000 mcg DAILY 04/17/22 08/09/22 mcg (50,000 unit) capsule escitalopram oxalate 10 mg tablet 10 mg DAILY 04/17/22 08/09/22 albuterol sulfate 90 mcg/actuation inhalation 12/20/22 aerosol inhaler budesonide-formoterol HFA 160 inhalation 02/19/23 mcg-4.5 mcg/actuation aerosol inhaler (Symbicort) liraglutide 0.6 mg/0.1 mL (18 mg/3 mg subcut 02/19/23 mL) subcutaneous pen injector (Victoza 3-Anuj) metformin 500 mg tablet,extended mg PO 02/19/23 release 24 hr Allergies Allergy/AdvReac Type Severity Reaction Status Date / Time tetanus and diphtheria Allergy Intermediate Swelling Verified 02/19/23 12:19 toxoids ibuprofen Allergy Mild Nausea Verified 02/19/23 12:19 Latex, Natural Rubber Allergy Unknown Other Verified 02/19/23 12:19 chocolate flavor Allergy Rash Verified 02/19/23 12:19 codeine Allergy Itching Verified 02/19/23 12:19 iodine Allergy Swelling Verified 02/19/23 12:19 of Lip/Tongue/Throat lisinopril Allergy Unknown Verified 02/19/23 12:19 shellfish derived Allergy Swelling Verified 02/19/23 12:19 Review of Systems Review of Systems: CONSTITUTIONAL: Denies body aches, fever, chills, or sweats. EYES: Denies visual changes, redness, or discharge. ENT: + left ear pain, sore throat, congestion, rhinorrhea CARDIOVASCULAR: Denies chest pain, palpitations, or edema. RESPIRATORY: Denies dyspnea.+ dry cough GASTROINTESTINAL: Denies abdominal pain, nausea, vomiting, or diarrhea. GENITOURINARY: Denies dysuria or hematuria. SKIN: Denies rash, itching, or wounds. MUSCULOSKELETAL: Denies back pain, joint pain, or myalgia. NEUROLOGIC: Denies headache, numbness, tingling, or weakness. PSYCH: Denies depression or anxiety. [facility] Past Medical History Medical History Anxiety and depression Complex regional pain syndrome Diabetes Endometriosis GERD (gastroesophageal reflux disease) Hypertension Low vitamin D level Surgical History Surgical History H/O LEEP History of sleeve gastrectomy History of weight loss surgery S/P endometrial ablation Social History Social History Smoking status: Never smoker Living arrangements: with family Gender identity (if verbalized by the patient): Female Comments At time of signature, I have reviewed and agree with nursing past medical, surgical, social and family history unless otherwise noted. Please see nursing chart for further information. There is no relevant family history pertinent to the presenting complaint Exam Narrative: GENERAL: Well-appearing, well-nourished, and in no acute distress. HEAD: Normocephalic, atraumatic. EYES: EOMI. No redness or drainage. Conjunctivae normal. ENT: Mucous membranes pink and moist. Nares congested. No rhinorrhea. TMs normal bilaterally. Throat normal. Uvula midline. NECK: Normal AROM. Supple. No lymphadenopathy. CHEST: No respiratory distress. Clear to auscultation. HEART: Regular rat
== END 2023-02-19 13:20 | disposition home or self-care (01) ==
PROVIDERS: Emergency Provider Nurse Practitioner
DX: J06.9 Acute upper respiratory infection, unspecified (principal); Z20.822 Contact with and (suspected) exposure to COVID-19; E11.9 Type 2 diabetes mellitus without complications; N80.9 Endometriosis, unspecified; K21.9 Gastro-esophageal reflux disease without esophagitis; I10 Essential (primary) hypertension; Z98.84 Bariatric surgery status; F41.9 Anxiety disorder, unspecified; F32.A Depression, unspecified; Z79.82 Long term (current) use of aspirin; Z79.84 Long term (current) use of oral hypoglycemic drugs
CPT/HCPCS: 87081; 87426; 87804; 87880; 99213; C9803; G0463

== ENCOUNTER 2023-04-13 19:04 | Emergency (ER) | payer OTHER, SELFPAY ==
[2023-04-13 19:17] VITALS: BP 136/83; PULSE 80; RESP 18; TEMP 37.1; O2SAT 100
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
== END 2023-04-13 19:45 | disposition home or self-care (01) ==
PROVIDERS: Emergency Provider Nurse Practitioner Family
DX: R51.9 Headache, unspecified (principal); R11.2 Nausea with vomiting, unspecified; R19.7 Diarrhea, unspecified; I10 Essential (primary) hypertension; E11.9 Type 2 diabetes mellitus without complications; Z79.899 Other long term (current) drug therapy; Z79.1 Long term (current) use of non-steroidal anti-inflammatories (NSAID); Z20.822 Contact with and (suspected) exposure to COVID-19
CPT/HCPCS: 87426; 87804; 99213; C9803; G0463

== ENCOUNTER 2023-05-02 13:13 | Emergency (ER) | payer OTHER, SELFPAY ==
[2023-05-02 13:23] VITALS: BP 148/89; PULSE 94; RESP 16; TEMP 37; O2SAT 100
--- NOTE | 2023-05-02 14:20 | ED.URI ---
HPI - URI/Sore Throat General Chief Complaint: Upper Respiratory Infection Stated Complaint: Sore Throat Time Seen by Provider: 05/02/23 13:25 Source: patient Mode of arrival: ambulatory Limitations: no limitations History of Present Illness HPI Narrative: Marisel is a 47-year-old female patient presenting to the clinic today with complaints of a sore throat, headache, body aches, chills, feeling feverish, and ear pain x2 days. Denies any chest pain or shortness of breath MD elicited complaint: sore throat and nasal congestion Related Data Home Medications Medication Instructions Recorded Confirmed aspirin 81 mg chewable tablet 81 mg PO DAILY 06/11/19 05/02/23 ergocalciferol (vitamin D2) 1,250 2,000 mcg PO DAILY 04/17/22 05/02/23 mcg (50,000 unit) capsule escitalopram oxalate 10 mg tablet 10 mg PO DAILY 04/17/22 05/02/23 albuterol sulfate 90 mcg/actuation 2 puff inhalation DAILY 12/20/22 05/02/23 aerosol inhaler budesonide-formoterol HFA 160 2 puff inhalation DAILY 02/19/23 05/02/23 mcg-4.5 mcg/actuation aerosol inhaler (Symbicort) liraglutide 0.6 mg/0.1 mL (18 mg/3 18 mg subcut WEEKLY 02/19/23 05/02/23 mL) subcutaneous pen injector (Victoza 3-Anuj) metformin 500 mg tablet,extended 500 mg PO BID 02/19/23 05/02/23 release 24 hr ibuprofen 800 mg tablet 800 mg PO TID 04/13/23 05/02/23 methocarbamol 750 mg tablet mg 04/13/23 norethindrone acetate 5 mg tablet mg 04/13/23 Allergies Allergy/AdvReac Type Severity Reaction Status Date / Time tetanus and diphtheria Allergy Intermediate Swelling Verified 05/02/23 13:53 toxoids ibuprofen Allergy Mild Nausea Verified 05/02/23 13:53 Latex, Natural Rubber Allergy Unknown Other Verified 05/02/23 13:53 chocolate flavor Allergy Rash Verified 05/02/23 13:53 codeine Allergy Itching Verified 05/02/23 13:53 iodine Allergy Swelling Verified 05/02/23 13:53 of Lip/Tongue/Throat lisinopril Allergy Unknown Verified 05/02/23 13:53 shellfish derived Allergy Swelling Verified 05/02/23 13:53 Review of Systems Review of Systems: Pertinent positives per HPI. Patient denies any rash, headache, visual changes, dizziness, shortness of breath, chest pain, palpitations, nausea, vomiting, diarrhea, constipation, abdominal pain, or any urinary issues. PMFSH Past Medical History Medical History Anxiety and depression Complex regional pain syndrome Diabetes Endometriosis GERD (gastroesophageal reflux disease) Hypertension Low vitamin D level Surgical History Surgical History H/O LEEP History of sleeve gastrectomy History of weight loss surgery S/P endometrial ablation Social History Social History Smoking status: Never smoker Living arrangements: with family Gender identity (if verbalized by the patient): Female Comments At the time of my signature, I reviewed and agree with the nursing past medical, surgical, social, and family history. There is no relevant family history pertinent to the patient complaint. Exam Narrative: General: Well-developed, well nourished, in no apparent distress Head: Normocephalic, atraumatic Eyes: Pupils equally round and reactive to light bilaterally, EOM intact, sclera and conjunctive clear, no discharge, lids normal Ears: TMs intact and clear, ear canals clear, no drainage, grossly hearing normal. Nose: Nares patent, no discharge, no inflammation, no sinus tenderness. Mouth: Oral pharynx without lesions or masses, good dentition, MMM. Neck: Supple, trachea midline, no enlargement of anterior or posterior cervical nodes, no thyroid masses or goiter palpable. Cardio: Regular rate and rhythm, s1 and s2 normal, no murmur appreciated. Resp: Clear to auscultation bilaterally, no rhonchi, rales, wheezing or rubs Course Course Em
== END 2023-05-02 14:26 | disposition home or self-care (01) ==
PROVIDERS: Emergency Provider Nurse Practitioner Family
DX: B34.9 Viral infection, unspecified (principal); J06.9 Acute upper respiratory infection, unspecified; J02.9 Acute pharyngitis, unspecified; Z20.822 Contact with and (suspected) exposure to COVID-19; F41.9 Anxiety disorder, unspecified; F32.A Depression, unspecified; E11.9 Type 2 diabetes mellitus without complications; Z79.84 Long term (current) use of oral hypoglycemic drugs; N80.9 Endometriosis, unspecified; K21.9 Gastro-esophageal reflux disease without esophagitis; I10 Essential (primary) hypertension; Z79.82 Long term (current) use of aspirin
CPT/HCPCS: 87081; 87426; 87804; 87880; 99213; G0463

== ENCOUNTER 2023-12-19 08:04 | Emergency (ER) | payer OTHER, SELFPAY ==
--- NOTE | ~2023-12-19 | XR_ITS ---
EXAMINATION: XR chest 2V DATE: 12/19/2023 08:35 INDICATION: Covid presenting with cough TECHNIQUE: frontal and lateral views of the chest were obtained. COMPARISON: Chest radiograph dated 12/20/22 FINDINGS: The lungs remain clear with no focal airspace opacities, pulmonary edema, pleural effusion or pneumot horax. The cardiomediastinal silhouette is normal. There are bridging osteophytes at multiple levels consistent with diffuse idiopathic skeletal hyperostosis (DISH). IMPRESSION: 1. No acute cardiopulmonary disease. Reviewed, dictated and finalized at location B.
[2023-12-19 08:14] VITALS: BP 147/98; PULSE 74; RESP 16; TEMP 37.2; O2SAT 99
--- NOTE | 2023-12-19 08:14 | ED.URI ---
HPI - URI/Sore Throat General Chief Complaint: Upper Respiratory Infection Stated Complaint: Difficult swallowing,COVID +,needs retest for work Time Seen by Provider: 12/19/23 08:06 Source: patient, RN notes reviewed and old records reviewed Mode of arrival: ambulatory Limitations: no limitations History of Present Illness HPI Narrative: Patient presents with 3 day history of cough, headache, fever, sore throat. She has been taking Tylenol with good relief of fever, but reports that her headache and sore throat her lingering. She began last night with some vomiting. She denies any unusual abdominal pain. Reports that she always has some degree of abdominal discomfort. She is not in any distress. She voices no other concerns or complaints at this time. Related Data Home Medications Medication Instructions Recorded Confirmed aspirin 81 mg chewable tablet 81 mg PO DAILY 06/11/19 05/02/23 ergocalciferol (vitamin D2) 1,250 2,000 mcg PO DAILY 04/17/22 05/02/23 mcg (50,000 unit) capsule escitalopram oxalate 10 mg tablet 10 mg PO DAILY 04/17/22 05/02/23 albuterol sulfate 90 mcg/actuation 2 puff inhalation DAILY 12/20/22 05/02/23 aerosol inhaler budesonide-formoterol HFA 160 2 puff inhalation DAILY 02/19/23 05/02/23 mcg-4.5 mcg/actuation aerosol inhaler (Symbicort) liraglutide 0.6 mg/0.1 mL (18 mg/3 18 mg subcut WEEKLY 02/19/23 05/02/23 mL) subcutaneous pen injector (Victoza 3-Anuj) metformin 500 mg tablet,extended 500 mg PO BID 02/19/23 05/02/23 release 24 hr ibuprofen 800 mg tablet 800 mg PO TID 04/13/23 05/02/23 methocarbamol 750 mg tablet mg 04/13/23 norethindrone acetate 5 mg tablet mg 04/13/23 Allergies Allergy/AdvReac Type Severity Reaction Status Date / Time tetanus and diphtheria Allergy Intermediate Swelling Verified 05/02/23 13:53 toxoids ibuprofen Allergy Mild Nausea Verified 05/02/23 13:53 Latex, Natural Rubber Allergy Unknown Other Verified 05/02/23 13:53 chocolate flavor Allergy Rash Verified 05/02/23 13:53 codeine Allergy Itching Verified 05/02/23 13:53 iodine Allergy Swelling Verified 05/02/23 13:53 of Lip/Tongue/Throat lisinopril Allergy Unknown Verified 05/02/23 13:53 shellfish derived Allergy Swelling Verified 05/02/23 13:53 Review of Systems Review of Systems: All systems reviewed & are unremarkable except as noted in HPI and below Constitutional: Constitutional: Reports as per HPI, Reports no additional constitutional complaints, Reports body ache(s), Reports chills, Reports fever(s), Reports headache(s), Reports lethargy and Reports poor appetite ENT: Reports system reviewed and no additional complaints, except as documented, Reports change in voice, Reports hoarseness and Reports sore throat Cardiovascular: Cardiovascular: Reports as per HPI and Reports no additional cardiovascular complaints Respiratory: Respiratory: Reports as per HPI, Reports no additional respiratory complaints, Reports cough and Reports pain with cough Gastrointestinal: Gastrointestinal: Reports no additional gastrointestinal complaints PMFSH Past Medical History Medical History Anxiety and depression Complex regional pain syndrome Diabetes Endometriosis GERD (gastroesophageal reflux disease) Hypertension Low vitamin D level Surgical History Surgical History H/O LEEP History of sleeve gastrectomy History of weight loss surgery S/P endometrial ablation Social History Social History Smoking status: Never smoker Living arrangements: with family Gender identity (if verbalized by the patient): Female Comments At the time of my signature, I reviewed and agree with the nursing past medical, surgical, social, and family history. There is no relevant family history pertinent to the patient complaint. Exam Const
[2023-12-19 09:58] LABS: EDCOVIDSCREEN Negative (Negative)
[2023-12-19 10:17] LABS: EDINFLUASCREEN Negative (Negative); EDINFLUBSCREEN Negative (Negative); EDSTREPNEGPOS1 Negative (Negative)
== END 2023-12-19 08:56 | disposition home or self-care (01) ==
PROVIDERS: Emergency Provider Nurse Practitioner Family
DX: J06.9 Acute upper respiratory infection, unspecified (principal); Z79.82 Long term (current) use of aspirin; F41.8 Other specified anxiety disorders; E11.9 Type 2 diabetes mellitus without complications; K21.9 Gastro-esophageal reflux disease without esophagitis; I10 Essential (primary) hypertension; E55.9 Vitamin D deficiency, unspecified; Z20.822 Contact with and (suspected) exposure to COVID-19
CPT/HCPCS: 71046; 87081; 87635; 87804; 87880; 99213; G0463

== ENCOUNTER 2024-05-12 12:34 | Emergency (ER) | payer OTHER, SELFPAY ==
--- NOTE | ~2024-05-12 | XR_ITS ---
EXAM: XR foot LT min 3V DATE: 05/12/2024 13:29 HISTORY: diffuse left foot pain s/p fall 9 days ago . COMPARISON: None available. FINDINGS: Normal mineralization. No fracture or dislocation. No lytic or blastic lesion. Mild degene rative change at the first MTP joint, with mild hallux valgus. Mild Achilles and plantar enthesopathy . Mild degenerative changes in multiple midfoot joints. No erosion or periosteal change. Soft tissues within normal limits. IMPRESSION: No acute osseous finding in the left foot. Reviewed, dictated and finalized at location [facility] [employer] [facility]
[2024-05-12 13:00] VITALS: BP 154/106; PULSE 82; RESP 16; TEMP 35.6; O2SAT 98
--- NOTE | 2024-05-12 13:04 | ED.LOWEXIN ---
HPI - Extremity Injury (Lower) General Chief Complaint: Extremity Injury, Lower Stated Complaint: left ankle injury Time Seen by Provider: 05/12/24 13:04 Source: patient, RN notes reviewed and old records reviewed Mode of arrival: ambulatory Limitations: no limitations History of Present Illness HPI Narrative: Patient presents with left foot pain. She reports that she injury to the foot on May 03, did have an x-ray done at that time which she reports was negative. Says that she is now having increased pain, was advised at the time of her 1st x-ray that she may need a 2nd 1. She is requesting this today. She denies any new injury or trauma. No other concerns or complaints today Related Data Home Medications ?Medication ?Instructions ?Recorded ?Confirmed ?Last Taken ?Type aspirin 81 mg chewable tablet 81 mg PO DAILY 06/11/19 12/19/23 Unknown History ergocalciferol (vitamin D2) 1,250 2,000 mcg PO DAILY 04/17/22 12/19/23 Unknown History mcg (50,000 unit) capsule escitalopram oxalate 10 mg tablet 10 mg PO DAILY 04/17/22 12/19/23 Unknown History albuterol sulfate 90 mcg/actuation 2 puff inhalation DAILY 12/20/22 12/19/23 Unknown History aerosol inhaler budesonide-formoterol HFA 160 2 puff inhalation DAILY 02/19/23 12/19/23 Unknown History mcg-4.5 mcg/actuation aerosol inhaler (Symbicort) liraglutide 0.6 mg/0.1 mL (18 mg/3 18 mg subcut WEEKLY 02/19/23 12/19/23 Unknown History mL) subcutaneous pen injector (Victoza 3-Anuj) metformin 500 mg tablet,extended 500 mg PO BID 02/19/23 12/19/23 Unknown History release 24 hr ibuprofen 800 mg tablet 800 mg PO TID 04/13/23 12/19/23 Unknown History methocarbamol 750 mg tablet 750 mg PO DAILY 04/13/23 12/19/23 Unknown History norethindrone acetate 5 mg tablet 5 mg PO DAILY 04/13/23 12/19/23 Unknown History Allergies Allergy/AdvReac Type Severity Reaction Status Date / Time iodine Allergy Severe Swelling Verified 05/12/24 12:57 of Lip/Tongue/Throat shellfish derived Allergy Severe Swelling Verified 05/12/24 12:57 chocolate flavor Allergy Intermediate Rash Verified 05/12/24 12:57 codeine Allergy Intermediate Itching Verified 05/12/24 12:57 tetanus and diphtheria Allergy Intermediate Swelling Verified 05/12/24 12:57 toxoids ibuprofen Allergy Mild Nausea Verified 05/12/24 12:57 Latex, Natural Rubber Allergy Unknown Other Verified 05/12/24 12:57 lisinopril Allergy Unknown Verified 05/12/24 12:57 Review of Systems Review of Systems: All systems reviewed & are unremarkable except as noted in HPI and below Constitutional: Constitutional: Reports no additional constitutional complaints ENT: Reports system reviewed and no additional complaints, except as documented Cardiovascular: Cardiovascular: Reports no additional cardiovascular complaints Respiratory: Respiratory: Reports no additional respiratory complaints Gastrointestinal: Gastrointestinal: Reports no additional gastrointestinal complaints [facility] Past Medical History Medical History Anxiety and depression Complex regional pain syndrome Diabetes Endometriosis GERD (gastroesophageal reflux disease) Hypertension Low vitamin D level Surgical History Surgical History H/O LEEP History of sleeve gastrectomy History of weight loss surgery S/P endometrial ablation Social History Social History Smoking status: Never smoker Living arrangements: with family Gender identity (if verbalized by the patient): Female Comments At the time of my signature, I reviewed and agree with the nursing past medical, surgical, social, and family history. There is no relevant family history pertinent to the patient complaint. Exam Const: General: cooperative, no acute distress, alert and awake Orientation/consciousness: oriented to person, oriented to place and oriented to time HENMT: Head: normal to inspection Resp: Effort & Inspection: normal respiratory effort and able to speak in complete sentences Auscultation: clear to auscultation bilaterally, no crackles, no rales, no rhonchi and no wheezes Cardio: Palpation: normal PMI Rate: regular rate Rhythm: regular rhythm Heart sounds: S1 normal heart sound present and S2 normal heart sound present Neuro: General: oriented to person, oriented to place and oriented to time Cranial nerves: Yes CN's II-XII intact bilaterally Psych: Appearance: grossly normal Thought process: Normal thought process present Insight: Good insight present (Psych) Judgement: Good judgement present (Psych) Course Course Level of Care: Express Care Visit Vital Signs Vital signs: Vital Signs Temperature 96.1 F L 05/12/24 13:00 Pulse Rate 82 05/12/24 13:00 Respiratory Rate 16 05/12/24 13:00 Blood Pressure 154/106 H 05/12/24 13:00 Pulse Oximetry 98 05/12/24 13:00 Oxygen Delivery Room Air 05/12/24 13:00 Temperature 96.1 F L 05/12/24 13:00 Pulse Rate 82 05/12/24 13:00 Respiratory Rate 16 05/12/24 13:00 Blood Pressure 154/106 H 05/12/24 13:00 Pulse Oximetry 98 05/12/24 13:00 Oxygen Delivery Room Air 05/12/24 13:00 Reviewed MDM - Extremity Injury (Lower) Imaging Data My impression: No acute finding Radiologist's impression: [facility] [address] [place] [address] XRay Report Signed Patient: Marisel Fuller : 1975 MR#: [id number] Age: 48 Acct:[id number] Loc: [facility] ADM Date: 05/12/24Attending Dr: Ordering Physician: Agatha Kerr FNP Date of Service: 05/12/24 Procedure(s): XR foot LT min 3V Accession Number(s): [id number] cc: Agatha Kerr FNP~ EXAM: XR foot LT min 3V DATE: 05/12/2024 13:29 HISTORY: diffuse left foot pain s/p fall 9 days ago . COMPARISON: None available. FINDINGS: Normal mineralization. No fracture or dislocation. No lytic or blastic lesion. Mild degenerative change at the first MTP joint, with mild hallux valgus. Mild Achilles and plantar enthesopathy. Mild degenerative changes in multiple midfoot joints. No erosion or periosteal change. Soft tissues within normal limits. IMPRESSION: No acute osseous finding in the left foot. Discharge Plan Discharge Clinical Impression: Acute foot pain Qualifiers: Laterality: left Qualified Code(s): M79.672 - Pain in left foot Patient Disposition: Home, Self-Care Condition: Stable Instructions: Antibiotic Form, P.R.I.C.E. Treatment (ED) Additional Instructions: Use [id number] medications to treat your symptoms. Follow package instructions. Follow-up with primary care provider. Emergency department for new or worse symptoms Patient Language: Swedish Prescriptions: No Action ergocalciferol (vitamin D2) 1,250 mcg (50,000 unit) capsule 2,000 mcg PO DAILY escitalopram oxalate 10 mg tablet 10 mg PO DAILY albuterol sulfate 90 mcg/actuation HFA aerosol inhaler 2 puff INHALATION DAILY ibuprofen 800 mg tablet 800 mg PO TID methocarbamol 750 mg tablet 750 mg PO DAILY norethindrone acetate 5 mg tablet 5 mg PO DAILY ondansetron 4 mg tablet,disintegrating 4 mg PO Q8H PRN (Reason: nausea and vomiting) Qty: 10 0RF benzonatate 200 mg capsule 200 mg PO TID PRN (Reason: cough) Qty: 30 0RF albuterol sulfate [Proventil HFA] 90 mcg/actuation HFA aerosol inhaler 2 puff inhalation QID PRN (Reason: shortness of breath or wheezing) Qty: 8.5 0RF aspirin 81 mg Tablet,Chewable 81 mg PO DAILY metformin 500 mg tablet extended release 24 hr 500 mg PO BID liraglutide [Victoza 3-Anuj] 0.6 mg/0.1 mL (18 mg/3 mL) pen injector 18 mg SUBCUT WEEKLY budesonide-formoterol [Symbicort] 160-4.5 mcg/actuation HFA aerosol inhaler 2 puff INHALATION DAILY Follow-up/Referrals: PHYSICIAN NOT ON STAFF,NONSTAFF [Primary Care Provider] - 2 Weeks Stand Alone Forms: Work/School Release IP Time of Disposition: 14:42
== END 2024-05-12 14:47 | disposition home or self-care (01) ==
PROVIDERS: Emergency Provider Nurse Practitioner Family
DX: M79.672 Pain in left foot (principal); Z79.82 Long term (current) use of aspirin; F41.8 Other specified anxiety disorders; E11.9 Type 2 diabetes mellitus without complications; K21.9 Gastro-esophageal reflux disease without esophagitis; I10 Essential (primary) hypertension; E55.9 Vitamin D deficiency, unspecified; Z98.84 Bariatric surgery status
CPT/HCPCS: 73630; 99213; G0463

== ENCOUNTER 2024-08-04 12:40 | Emergency (ER) | payer MEDICAID, SELFPAY ==
--- NOTE | 2024-08-04 12:42 | ED.ALLEREA ---
HPI - Allergic Reaction General Chief complaint: Allergic Reaction Stated complaint: allergic reaction Time Seen by Provider: 08/04/24 13:00 Source: patient Mode of arrival: ambulatory Limitations: no limitations History of Present Illness HPI narrative: 48-year-old female presents concern for allergic reaction. Reports she has a history of peanut allergy, chocolate allergy, shellfish allergy. She ate [place] fish and cashews yesterday and started having hives, itchy eyes, feeling of wheezing. She has her albuterol inhaler which helped the wheezing. She has been taking Benadryl before hours. She still reporting feeling of hives and itchy eyes. She denies fever, swollen tongue, swollen lips, diarrhea, vomiting. MD complaint: allergic reaction Related Data Home Medications ?Medication ?Instructions ?Recorded ?Confirmed ?Last Taken ?Type aspirin 81 mg chewable tablet 81 mg PO DAILY 06/11/19 12/19/23 Unknown History ergocalciferol (vitamin D2) 1,250 2,000 mcg PO DAILY 04/17/22 12/19/23 Unknown History mcg (50,000 unit) capsule escitalopram oxalate 10 mg tablet 10 mg PO DAILY 04/17/22 12/19/23 Unknown History albuterol sulfate 90 mcg/actuation 2 puff inhalation DAILY 12/20/22 12/19/23 Unknown History aerosol inhaler budesonide-formoterol HFA 160 2 puff inhalation DAILY 02/19/23 12/19/23 Unknown History mcg-4.5 mcg/actuation aerosol inhaler (Symbicort) liraglutide 0.6 mg/0.1 mL (18 mg/3 18 mg subcut WEEKLY 02/19/23 12/19/23 Unknown History mL) subcutaneous pen injector (Victoza 3-Anuj) metformin 500 mg tablet,extended 500 mg PO BID 02/19/23 12/19/23 Unknown History release 24 hr ibuprofen 800 mg tablet 800 mg PO TID 04/13/23 12/19/23 Unknown History methocarbamol 750 mg tablet 750 mg PO DAILY 04/13/23 12/19/23 Unknown History norethindrone acetate 5 mg tablet 5 mg PO DAILY 04/13/23 12/19/23 Unknown History Allergies Allergy/AdvReac Type Severity Reaction Status Date / Time iodine Allergy Severe Swelling Verified 08/04/24 13:00 of Lip/Tongue/Throat shellfish derived Allergy Severe Swelling Verified 08/04/24 13:00 chocolate flavor Allergy Intermediate Rash Verified 08/04/24 13:00 codeine Allergy Intermediate Itching Verified 08/04/24 13:00 tetanus and diphtheria Allergy Intermediate Swelling Verified 08/04/24 13:00 toxoids ibuprofen Allergy Mild Nausea Verified 08/04/24 13:00 Latex, Natural Rubber Allergy Unknown Other Verified 08/04/24 13:00 lisinopril Allergy Unknown Verified 08/04/24 13:00 nut - unspecified Allergy rash Verified 08/04/24 13:00 Review of Systems Review of Systems: CONSTITUTIONAL: Denies malaise, chills, sweats, or fever. EYES: Denies visual changes. Reports itchy eyes ENT: Denies rhinorrhea, congestion, sinus pain, otalgia or sore throat. CARDIOVASCULAR: Denies chest pain, palpitations, or edema. RESPIRATORY: Denies cough or dyspnea. GASTROINTESTINAL: Denies abdominal pain, nausea, vomiting, diarrhea SKIN: Reports hives MUSCULOSKELETAL: Denies myalgia. NEUROLOGIC: Denies numbness, weakness, or headache. PSYCHIATRIC: Denies anxiety or depression. All systems reviewed & are unremarkable except as noted in HPI and below PMFSH Past Medical History Medical History Anxiety and depression Complex regional pain syndrome Diabetes Endometriosis GERD (gastroesophageal reflux disease) Hypertension Low vitamin D level Surgical History Surgical History H/O LEEP History of sleeve gastrectomy History of weight loss surgery S/P endometrial ablation Social History Social History Smoking status: Never smoker Living arrangements: with family Gender identity (if verbalized by the patient): Female Comments At time of signature, agree with nursing past medical, surgical, social and family history. There is no relevant family history pertinent to the presenting complaint Exam Narrative: GENERAL: Well-appearing, well-nourished, and in no acute distress. HEAD: Normocephalic, atraumatic. EYES: PERRLA, sclera mildly injected, and EOMI. No nystagmus. ENT: Nares clear, turbinates pink, no rhinorrhea or epistaxis. Mucous membranes moist. TM pearly rushing with sharp light reflex bilaterally; no tragal tenderness. Oropharynx without erythema or lesions. Tonsils not enlarged and without exudate. NECK: Supple. No lymphadenopathy. CHEST: No respiratory distress. Clear to auscultation. No bony deformities, no asymmetry. Speaks in full sentences. HEART: Regular rate and rhythm. No murmur heard. Normal peripheral pulses. SKIN: Warm, dry. Mild rash noted to the forearms and under the eyes NEURO: Alert and oriented x3. No focal deficits. Cranial nerves II through XII grossly intact PSYCH: Normal mood and affect Course Course Emergency Course: Patient is aware of diagnosis, understands and agrees to treatment plan. Anticipatory guidance given. Patient agrees to follow-up as directed and is aware of reasons to seek care at the emergency department. Portions of this record may have been created with voice recognition software Level of Care: Express Care Visit Vital Signs Vital signs: Reviewed. MDM - Allergic Reaction MDM Narrative Medical decision making narrative: No soft palate or uvula edema, no tongue or lip edema or other mucosal involvement, no respiratory compromise, no stridor, no wheezing, no wheezing, no history of syncope, no hypotension, no nausea, vomiting, or diarrhea. Critical Care Time Critical Care Time Critical Care Time: No Discharge Plan Discharge Clinical Impression: Allergic reaction Patient Disposition: Home Condition: Stable Instructions: General Allergic Reaction (ED) Additional Instructions: 1) Please follow-up with your primary care doctor in the next 1-2 days. 2) If you have any worsening of symptoms or any other urgent concerns please go to the ER. 3) Please take medications as prescribed and continue taking your home medications as usual. 4) Please read and follow information included in discharge instructions. Patient Language: Citizen Of [place] Prescriptions: New methylprednisolone [Medrol (Anuj)] 4 mg tablets,dose pack See Rx Instructions .ROUTE .COMPLEX Qty: 21 0RF Rx Instructions: orally per package directions No Action ergocalciferol (vitamin D2) 1,250 mcg (50,000 unit) capsule 2,000 mcg PO DAILY escitalopram oxalate 10 mg tablet 10 mg PO DAILY albuterol sulfate 90 mcg/actuation HFA aerosol inhaler 2 puff INHALATION DAILY ibuprofen 800 mg tablet 800 mg PO TID methocarbamol 750 mg tablet 750 mg PO DAILY norethindrone acetate 5 mg tablet 5 mg PO DAILY benzonatate 200 mg capsule 200 mg PO TID PRN (Reason: cough) Qty: 30 0RF albuterol sulfate [Proventil HFA] 90 mcg/actuation HFA aerosol inhaler 2 puff inhalation QID PRN (Reason: shortness of breath or wheezing) Qty: 8.5 0RF aspirin 81 mg Tablet,Chewable 81 mg PO DAILY metformin 500 mg tablet extended release 24 hr 500 mg PO BID liraglutide [Victoza 3-Anuj] 0.6 mg/0.1 mL (18 mg/3 mL) pen injector 18 mg SUBCUT WEEKLY budesonide-formoterol [Symbicort] 160-4.5 mcg/actuation HFA aerosol inhaler 2 puff INHALATION DAILY Follow-up/Referrals: PHYSICIAN NOT ON STAFF,NONSTAFF [Primary Care Provider] -
[2024-08-04 12:52] VITALS: BP 149/88; PULSE 70; RESP 16; TEMP 36.9; O2SAT 100
[2024-08-04] MEDS: methylPREDNISolone SOD SUCC 125 MG VIAL IM (13:26)
== END 2024-08-04 13:32 | disposition home or self-care (01) ==
PROVIDERS: Emergency Provider Nurse Practitioner
DX: T78.1XXA Other adverse food reactions, not elsewhere classified, initial encounter (principal); R21 Rash and other nonspecific skin eruption; E11.9 Type 2 diabetes mellitus without complications; Z79.84 Long term (current) use of oral hypoglycemic drugs; Z79.85 Long-term (current) use of injectable non-insulin antidiabetic drugs; I10 Essential (primary) hypertension; N80.9 Endometriosis, unspecified; K21.9 Gastro-esophageal reflux disease without esophagitis; E55.9 Vitamin D deficiency, unspecified; F41.9 Anxiety disorder, unspecified; F32.A Depression, unspecified; Z79.82 Long term (current) use of aspirin; Z98.84 Bariatric surgery status
CPT/HCPCS: 96372; 99213; G0463; J2919